=== PATIENT | female | born 1970 | race Caucasian/White ===

== ENCOUNTER 2020-05-26 07:44 | Outpatient (CLI) | payer BC, SELFPAY ==
--- NOTE | ~2020-05-26 | MM_ITS ---
EXAMINATION: MM screening katarzyna BI w abril HISTORY: Screening mammogram TECHNIQUE: Craniocaudal and mediolateral oblique 3-D tomosynthesis images were obtained and synthetic 2-D images were generated. CAD analysis was submitted and interpreted. COMPARISON: No prior mammogram is available for comparison at this institution. BREAST PARENCHYMAL COMPOSITION: There are scattered areas of fibroglandular density. FINDINGS: RIGHT BREAST: A mass is present in the far posterior third of the breast which may reflect an intrama mmary lymph node. No suspicious calcification or architectural distortion are identified. LEFT BREAST: There is no evidence of suspicious mass, calcification, or architectural distortion to s uggest malignancy. IMPRESSION: 1. Right breast mass which may represent the patient's baseline however no comparison is currently av ailable. 2. Comparison with prior mammograms is necessary. BI-RADS Category 0: Incomplete: Needs comparison with prior mammograms. Reviewed, dictated and finalized at location A. NG ROOM BUSSER IMPRESSION: 1. Right breast mass which may represent the patient's baseline however no comp arison is currently available. 2. Comparison with prior mammograms is necessary. BI-RADS Category 0: Incomplete: Needs comparison with prior mammograms.
== END 2020-05-26 07:45 | disposition home or self-care (01) ==
LOC: CHSIMG 07:47
PROVIDERS: PCP Internal Medicine; Visit Provider Internal Medicine
DX: Z12.31 Encounter for screening mammogram for malignant neoplasm of breast (principal)
CPT/HCPCS: 77063; 77067

== ENCOUNTER 2020-05-30 09:27 | Outpatient (CLI) | payer BC, SELFPAY ==
--- NOTE | ~2020-05-30 | MMUS_ITS ---
EXAMINATION: MM diagnostic katarzyna RT w abril, US breast RT limited HISTORY: Follow-up right breast mass TECHNIQUE: Additional 3-D tomosynthesis images of the right breast were performed and synthetic 2-D i mages were generated. CAD analysis was submitted and interpreted. High resolution Limited right breas t ultrasound was performed. COMPARISON: 05/26/2020 BREAST PARENCHYMAL COMPOSITION: Breast composed of scattered areas of fibroglandular density. FINDINGS: MAMMOGRAPHIC FINDINGS: There is a 12 mm mass in the lower outer quadrant of the right breast. There are no suspicious calcif ications or architectural distortion. ULTRASOUND: Limited right breast ultrasound: At 9:00, 9 cm from the nipple there is 1.1 cm intramammary lymph nod e corresponding to the mass identified by mammography. No suspicious masses to suggest malignancy. IMPRESSION: 1. No evidence for malignancy in the right breast. Benign intramammary lymph node. 2. Routine yearly screening mammogram and regular clinical breast examination are recommended. BI-RADS Category 2: Benign finding(s). Reviewed, dictated and finalized at location A. EL SPRAYER IMPRESSION: 1. No evidence for malignancy in the right breast. Benign intramammary lymph no de. 2. Routine yearly screening mammogram and regular clinical breast examination a re recommended. BI-RADS Category 2: Benign finding(s).
== END 2020-05-30 09:28 | disposition home or self-care (01) ==
PROVIDERS: PCP Nurse Practitioner Family; Visit Provider Nurse Practitioner Family
DX: R92.8 Other abnormal and inconclusive findings on diagnostic imaging of breast (principal)
CPT/HCPCS: 76642; 77061; 77065; G0279

== ENCOUNTER 2021-04-17 10:59 | Outpatient (CLI) | payer BC, SELFPAY ==
[2021-04-17 12:09] LABS: Influenza A QL RT-PCR Positive (Negative); Influenza B QL RT-PCR Negative (Negative); SARS-CoV-2 RNA PCR Negative (Negative)
== END 2021-04-17 11:00 | disposition home or self-care (01) ==
LOC: CHSLAB 11:00
PROVIDERS: PCP Internal Medicine; Visit Provider Internal Medicine
DX: R50.9 Fever, unspecified (principal); R05.9 Cough, unspecified; Z20.822 Contact with and (suspected) exposure to COVID-19
CPT/HCPCS: 87502; C9803; U0003; U0005

== ENCOUNTER 2021-06-12 11:16 | Outpatient (CLI) | payer OTHER, SELFPAY ==
[2021-06-12 12:22] LABS: SARS-CoV-2 Ag Positive (Negative)
== END 2021-06-12 11:17 | disposition home or self-care (01) ==
LOC: CHSLAB 11:23
PROVIDERS: PCP Internal Medicine; Visit Provider Internal Medicine
DX: U07.1 COVID-19 (principal); J06.9 Acute upper respiratory infection, unspecified
CPT/HCPCS: 87426; C9803

== ENCOUNTER → 2021-11-20 16:27 | Outpatient (CLI) | payer OTHER, SELFPAY ==
--- NOTE | ~2021-11-20 | MR_ITS ---
EXAMINATION: MR knee RT wo con DATE: 11/20/2021 17:08 INDICATION: Right knee pain. TECHNIQUE: Magnetic resonance imaging (MRI) of the knee was performed without intravenous contrast. S equences included axial PD-weighted FS FSE, coronal PD-weighted FSE and PD-weighted FS FSE, sagittal PD-weighted FSE, and sagittal T2-weighted FS FSE. COMPARISON: None. FINDINGS: Medial compartment: Apical and oblique undersurface tears of the posterior horn and body, medial meniscus. Diffuse severe thinning of cartilage. Medial meniscal extrusion. Moderate osteophytosis. Lateral compartment: Intact meniscus. Moderate diffuse thinning of cartilage. Mild osteophytosis. Patellofemoral compartment: Moderate medial facet cartilage thickening, with full-thickness fissuring. Moderate osteophytosis. Re tinacula intact. Ligaments and tendons: ACL, PCL, LCL, and MCL are intact. Flexor and extensor tendons are intact. Fluid: Minimal volume joint fluid is present. Osseous/other: Severe subchondral sclerosis and subchondral cyst formation with mild marrow edema in the medial aspe ct of the medial plateau. Old subchondral fracture of the medial cortex. Distal femoral enchondroma. IMPRESSION: 1. Complex tear of the posterior horn and body, medial meniscus. 2. Tricompartmental osteophytic changes, severe in the medial compartment. 3. No ligamentous or tendon disruption. Reviewed, dictated and finalized at location K.
== END ==
PROVIDERS: PCP Internal Medicine; Visit Provider Nurse Practitioner Family
DX: S83.231A Complex tear of medial meniscus, current injury, right knee, initial encounter (principal); X58.XXXA Exposure to other specified factors, initial encounter
CPT/HCPCS: 73721

== ENCOUNTER 2022-11-23 07:22 | Outpatient (CLI) | payer OTHER, SELFPAY ==
[2022-11-23 07:35] LABS: Basophils Percent Auto 1.3 % (0.0-1.0); Eosinophils Percent Auto 2.6 % (1.0-6.0); Immature Granulocyte Absolute 0.01 K/mm3 (0.00-0.00); Immature Granulocyte Percent A 0.1 % (0.0-0.0); Lymphocytes Absolute Auto 2.36 K/mm3 (1.10-4.50); Lymphocytes Percent Auto 31.2 % (18.0-42.0); Mean Corpuscular HGB Conc 33.3 g/dL (32.0-36.0); Mean Corpuscular Hemoglobin 29.5 pg (27.0-31.0); Mean Corpuscular Volume 88.4 fL (78.0-102.0); Mean Platelet Volume 9.5 fl (9.2-11.8); Monocytes Absolute Auto 0.63 K/mm3 (0.10-0.90); Monocytes Percent Auto 8.3 % (2.0-11.0); Neutrophils Absolute Auto 4.3 K/mm3 (1.7-7.2); Neutrophils Percent Auto 56.5 % (50.0-70.0); Platelet Count Result 266 K/mm3 (150-420); Red Blood Count 4.75 M/mm3 (4.20-5.40); Red Cell Distribution Width 13.9 % (11.6-14.4); White Blood Count 7.6 K/mm3 (4.8-10.8)
[2022-11-23 07:36] LABS: Appearance Urine Clear (Clear); Bilirubin Urine Negative (Negative); Blood Urine Negative (Negative); Color Urine Light Yellow (Yellow); Glucose Urine UA Negative (Negative); Ketones Urine Negative (Negative); Leukocyte Esterase Ur Negative (Negative); Nitrate Urine Negative (Negative); Protein Urine Negative (Negative); Urobilinogen Urine 0.2 mg/dL (0.2-1.0)
[2022-11-23 07:37] LABS: Add Urine Microscopic? NO
[2022-11-23 08:25] LABS: Alanine Aminotransferase 22 U/L (14-59); Albumin Level 3.8 g/dL (3.4-5.0); Alkaline Phosphatase 66 U/L (46-116); Anion Gap 9 mmol/L (8-16); Aspartate Amino Transferase 12 U/L (15-37); Bilirubin,Total 0.4 mg/dL (0.00-1.00); Blood Urea Nitrogen 13 mg/dL (7-18); Calcium 9.2 mg/dL (8.5-10.1); Carbon Dioxide 27 mmol/L (21-32); Chloride 106 mmol/L (98-108); Cholesterol 228 mg/dL (0-200); Estimated Glomerular Filt Rate > 60; Glucose 103 mg/dL (70-99); HDL Direct 53 mg/dL (40-60); LDL Cholesterol Calculated 158 mg/dL (<130); Osmolality Calculated 294 mOsm/kg (285-295); Potassium 4.3 mmol/L (3.5-5.1); Sodium 142 mmol/L (136-145); Thyroid Stimulating Hormone 3.26 uIU/mL (0.36-3.74); Triglycerides 86 mg/dL (0-150)
== END 2022-11-23 07:23 | disposition home or self-care (01) ==
LOC: CHSLAB 07:24
PROVIDERS: PCP Internal Medicine; Visit Provider Internal Medicine
DX: Z00.00 Encounter for general adult medical examination without abnormal findings (principal)
CPT/HCPCS: 36415; 80053; 80061; 81003; 84443; 85025

== ENCOUNTER 2022-11-29 14:18 | Outpatient (CLI) | payer OTHER, SELFPAY ==
--- NOTE | ~2022-11-29 | DEXA_ITS ---
Bone Density Report Name: NATY HORTON Age: 52 Sex: Female Ethnicity: White Date of : 1970 Indication: postmenopausal; screening for osteoporosis; hysterectomy; Referring Provider: Stephen South Study: Bone densitometry was performed. Exam Date: November 29, 2022 Accession number: [id number] Bone Density: Region BMD T-score Z-score Classification AP Spine(L1-L4) 1.109 0.6 1.3 Normal Femoral Neck (Left) 0.719 -1.2 -0.4 Osteopenia Total Hip (Left) 1.020 0.6 1.1 Normal Femoral Neck (Right) 0.703 -1.3 -0.6 Osteopenia Total Hip (Right) 0.950 0.1 0.5 Normal Femoral Neck Mean 0.711 -1.2 -0.5 Osteopenia Total Hip Mean 0.985 0.4 0.8 Normal World Health Organization criteria for BMD impression classify patients as: Normal (T-score at or above -1.0), Osteopenia (T-score between -1.0 and -2.5), or Osteoporosis (T-score at or below -2.5). 10-year Fracture Risk(1): Major Osteoporotic Fracture 3.9% Hip Fracture 0.4% Reported Risk Factors: [place] (), Neck BMD=0.703, BMI=39.0, smoking (1) FRAX(R) Version 3.08. Fracture probability calculated for an untreated patient. Fracture probability may be lower if the patient has received treatment. Clinical Information Provided by Patient: Smokes Has the following medical conditions: Hysterectomy Patient maximum height was 62 Menopause Age: 40 Drinks caffeinated beverages Onset of menses at age 14 Number of children 2 Impression: The patient has low bone mass, based on the Right Femoral Neck T-score. The patient has risk factors, including: smoking. Discussion: BONE DENSITY IS LOW AT ONE OR MORE SKELETAL SITES. This patient's lowest T-score is low at one or more skeletal sites. It meets the World Health Organization's (WHO) criteria for ?low bone mass? (T-score between -1.0 and -2.5). The patient's 10-year risk of fracture as calculated by FRAX is less than the threshold where pharmacological therapy is recommended by the National Osteoporosis Foundation (NOF). However, all treatment decisions require clinical judgment and consideration of individual patient factors, including patient preferences, comorbidities, previous drug use, risk factors not captured in the FRAX model (e.g., frailty, falls, vitamin D deficiency, increased bone turnover, interval significant decline in bone density) and possible under or overestimation of fracture risk by FRAX. The patient should follow a healthful lifestyle (good nutrition with adequate calcium and vitamin D, and appropriate weight-bearing exercise). Follow-Up: Consider repeating this study in 2 to 3 years to reassess this patient's status, or sooner if there is some new clinical indication. Reported by: Dr. Alfredo Graves on 11/29/2022 2:52:00 PM. Reviewed, dictated and finalized at location A.
--- NOTE | ~2022-11-29 | MM_ITS ---
EXAMINATION: MM screening katarzyna BI w abril HISTORY: Screening mammogram TECHNIQUE: Craniocaudal and mediolateral oblique 3-D tomosynthesis images were obtained and synthetic 2-D images were generated. CAD analysis was submitted and interpreted. COMPARISON: 05/30/2020 diagnostic right mammogram and limited right breast ultrasound 05/26/2020 bilateral screening mammogram BREAST PARENCHYMAL COMPOSITION: FINDINGS: Stable approximately 10 mm circumscribed benign appearing lymph node in the posterior mid t o lower outer right breast. There is no evidence of suspicious mass, calcification, or architectural distortion to suggest malignancy in either breast. There has been no suspicious interval change. IMPRESSION: 1. No mammographic evidence of malignancy. 2. Recommend routine screening mammography in one year. BI-RADS Category 2: Benign finding(s). Reviewed, dictated and finalized at location A.
== END 2022-11-29 14:19 | disposition home or self-care (01) ==
LOC: CHSIMG 14:19
PROVIDERS: PCP Internal Medicine; Visit Provider Internal Medicine
DX: Z12.31 Encounter for screening mammogram for malignant neoplasm of breast (principal); Z78.0 Asymptomatic menopausal state
CPT/HCPCS: 77063; 77067; 77080

== ENCOUNTER 2022-12-20 04:10 | Day surgery (SDC) | payer OTHER, SELFPAY ==
[2022-12-16 16:07] VITALS: BMI 39.1
[2022-12-20 11:34] VITALS: BP 138/79; PULSE 81; RESP 18; TEMP 36.3; O2SAT 100; BMI 38.3
[2022-12-20] MEDS: LACTATED RINGERS 1,000 ML 150 ML IV CONT (11:44)
[2022-12-20 12:28] VITALS: BP 102/63; PULSE 79; RESP 24; O2SAT 99
[2022-12-20 12:38] VITALS: BP 114/72; PULSE 68; RESP 18; O2SAT 100
[2022-12-20 12:48] VITALS: BP 132/88; PULSE 60; RESP 18; O2SAT 99
--- NOTE | 2022-12-23 12:55 | PM.HPGS ---
History of Present Illness History of Present Illness Consent: Risks, benefits, and alternatives have been discussed and questions answered. Patient agrees to proceed with procedure. Chief complaint: neoplasm screening Narrative: Nara Zapien is a 52 year old female Presents for screening colonoscopy. Patient's current weight appetite and bowel movements are normal. She she has had no previous exams. Review of Systems Review of Systems: Review of systems noncontributory. [facility] Social History Social History Smoking packs per day: 0.75 Smoking cigarettes per day: 15.0 Years smoked: 30 Smoking pack-years: 22.50 Smoking status: Current every day smoker Tobacco type: cigarettes Alcohol intake: never Substance use: never Substance use type: does not use Living arrangements: with family Spiritual care concerns: No Meds Home Medications and Allergies Home Medications Medication Instructions Recorded Confirmed Type phentermine 15 mg capsule 15 mg PO EVERY OTHER DAY 12/16/22 12/16/22 History topiramate 25 mg tablet 25 mg PO EVERY OTHER DAY 12/16/22 12/16/22 History Allergies Allergy/AdvReac Type Severity Reaction Status Date / Time No Known Allergies Allergy Verified 12/20/22 11:33 Exam Narrative: Physical exam reveals patient vital signs stable. HEENT exam is unremarkable. Patient anicteric. Lungs are clear. Heart without murmur. Abdomen bowel sounds present soft nontender with no organomegaly. Digital rectal exam normal. Assessment and Plan Assessment and plan (1) Encounter for screening colonoscopy: Code(s): Z12.11 - Encounter for screening for malignant neoplasm of colon Status: Acute Assessment and Plan: patient presents for screening colonoscopy on 09/19/2022.
== END 2022-12-20 12:56 | disposition home or self-care (01) ==
PROVIDERS: PCP Internal Medicine; Visit Provider Internal Medicine Gastroenterology
PROC: 0DJD8ZZ Inspection of Lower Intestinal Tract, Via Natural or Artificial Opening Endoscopic (ICD-10-PCS; CPT 45378; principal; 2022-12-20 13:15)
DX: Z12.11 Encounter for screening for malignant neoplasm of colon (principal); K64.8 Other hemorrhoids; F17.210 Nicotine dependence, cigarettes, uncomplicated
CPT/HCPCS: 45378; J2704; J7120

== ENCOUNTER 2023-12-18 13:32 | Outpatient (CLI) | payer OTHER, SELFPAY ==
--- NOTE | ~2023-12-18 | MM_ITS ---
EXAMINATION: MM screening katarzyna BI w abril HISTORY: Screening TECHNIQUE: Craniocaudal and mediolateral oblique 3-D tomosynthesis images were obtained and synthetic 2-D images were generated. CAD analysis was submitted and interpreted. COMPARISON: Comparison to multiple prior studies sequentially, with oldest reviewed study dated 12/2020. BREAST PARENCHYMAL COMPOSITION: Not dense: There are scattered areas of fibroglandular density. FINDINGS: There is no evidence of suspicious mass, calcification, or architectural distortion to sugg est malignancy in either breast. There has been no suspicious interval change. IMPRESSION: 1. No mammographic evidence of malignancy. 2. Recommend routine screening mammography in one year. BI-RADS Category 1: Negative Reviewed, dictated and finalized at location B.
--- NOTE | 2023-12-18 14:55 | ECHO_ITS ---
Patient Info Name: Nara Zapien Age: 53 years : 1970 Gender: Female Ht: 63 in Wt: 225 lbs BSA: 2.18 m2 HR: 60 bpm BP: 128 / 82 mmHg Technical Quality: Fair Exam Date: 12/18/2023 2:06 PM Exam Location: [facility] [place] Patient Status: Outpatient Admit Date: 12/18/2023 Staff Ordering Physician: Stephen South MD Checker Loader: Sid Hernandez RDCS Attending Provider: Stephen South MD Exam Type: CA echo doppler color flow Study Info Indications - cardiac murmur - abnormal ekg Complete two-dimensional, color flow and Doppler transthoracic echocardiogram is performed. Summary 1. Complete two-dimensional, color flow and Doppler transthoracic echocardiogram is performed. 2. Left ventricular chamber dimension is normal. 3. Left ventricular systolic function is normal, estimated at 60-65%. 4. The left ventricular diastolic function is normal. 5. E/e' 8 is minimally elevated. 6. There is mild mitral valve regurgitation. 7. There is trace tricuspid valve regurgitation. 8. No pulmonary hypertension, estimated pulmonary arterial systolic pressure is 29 mmHg. Left Ventricle E/e' 8 is minimally elevated. Left ventricular chamber dimension is normal. Left ventricular systolic function is normal, estimated at 60-65%. The left ventricular diastolic function is normal. Right Ventricle Right ventricular systolic function is normal and with normal TAPSE 2.1 cm. Right ventricular chamber dimension is normal. Left Atria Left atrial chamber dimension is normal. Right Atria Right atrial chamber dimension is normal. Aortic Valve The aortic valve is trileaflet. There is no aortic valve stenosis. There is no aortic valve regurgitation. Pulmonic Valve There is no pulmonic regurgitation. Mitral Valve There is no mitral valve stenosis. There is mild mitral valve regurgitation. Tricuspid Valve There is trace tricuspid valve regurgitation. No pulmonary hypertension, estimated pulmonary arterial systolic pressure is 29 mmHg. Pericardium/Pleural There is no pericardial effusion. Inferior Vena Cava Normal inferior vena cava with >50% collapse upon inspiration consistent with normal right atrial pressure, 5 mmHg. Aorta The aortic root size at the sinus of Valsalva is normal. Left Ventricular Outflow Tract Name Value Normal LVOT 2D LVOT Diameter 2.0 cm LVOT Doppler LVOT Peak Velocity 118 cm/s LVOT Peak Gradient 6 mmHg LVOT Mean Gradient 3 mmHg LVOT VTI 30 cm LVOT VTI/AV VTI Ratio 0.8 LVOT Stroke Volume 97 ml Pulmonic Valve Name Value Normal PV Doppler PV Peak Velocity 71 cm/s PV Peak Gradient 2 mmHg Mitral Valve Name Value Normal
== END 2023-12-18 13:33 | disposition home or self-care (01) ==
LOC: CHSIMG 13:35
PROVIDERS: PCP Internal Medicine; Visit Provider Internal Medicine
DX: R94.31 Abnormal electrocardiogram [ECG] [EKG] (principal); R01.1 Cardiac murmur, unspecified; Z12.31 Encounter for screening mammogram for malignant neoplasm of breast; I34.0 Nonrheumatic mitral (valve) insufficiency
CPT/HCPCS: 77063; 77067; 93306

== ENCOUNTER 2023-12-20 07:15 | Outpatient (CLI) | payer OTHER, SELFPAY ==
[2023-12-20 07:59] LABS: Hematocrit 39.8 % (35.0-49.0); Hemoglobin 13.4 g/dL (12.0-15.0); Mean Corpuscular HGB Conc 33.7 g/dL (32-36); Mean Corpuscular Hemoglobin 29.5 pg (27.0-31.0); Mean Corpuscular Volume 87.5 fL (78.0-102.0); Mean Platelet Volume 9.2 fl (9.2-11.8); Platelet Count Result 253 K/mm3 (150-420); Red Blood Count 4.55 M/mm3 (4.20-5.40); Red Cell Distribution Width 13.5 % (11.6-14.4); White Blood Count 5.8 K/mm3 (4.8-10.8)
[2023-12-20 08:01] LABS: Bilirubin Urine Negative (Negative); Blood Urine Negative (Negative); Color Urine Light Yellow (Yellow); Glucose Urine UA Negative (Negative); Ketones Urine Negative (Negative); Leukocyte Esterase Ur Negative (Negative); Nitrate Urine Negative (Negative); Protein Urine Negative (Negative); Specific Grav Ur 1.015 (1.010-1.020); Urobilinogen Urine 0.2 mg/dL (0.2-1.0)
[2023-12-20 08:06] LABS: Add Urine Microscopic? NO; Appearance Urine Sl Cloudy (Clear)
[2023-12-20 08:34] LABS: Alanine Aminotransferase 26 U/L (14-59); Albumin Level 3.4 g/dL (3.4-5.0); Alkaline Phosphatase 76 U/L (46-116); Anion Gap 6 mmol/L (4-12); Aspartate Amino Transferase 12 U/L (15-37); Bilirubin,Total 0.4 mg/dL (0.00-1.00); Blood Urea Nitrogen 17 mg/dL (7-18); Calcium 8.9 mg/dL (8.5-10.1); Carbon Dioxide 30 mmol/L (21-32); Chloride 104 mmol/L (98-108); Cholesterol 265 mg/dL (0-200); Estimated Glomerular Filt Rate > 60; Glucose 113 mg/dL (70-99); HDL Direct 66 mg/dL (40-60); LDL Cholesterol Calculated 184 mg/dL (<130); Osmolality Calculated 292 mOsm/kg (285-295); Potassium 4.4 mmol/L (3.5-5.1); Sodium 140 mmol/L (136-145); Thyroid Stimulating Hormone 3.38 uIU/mL (0.36-3.74); Total Protein 7.2 g/dL (6.4-8.2); Triglycerides 77 mg/dL (0-150)
== END 2023-12-20 07:16 | disposition home or self-care (01) ==
LOC: CHSLAB 07:17
PROVIDERS: PCP Internal Medicine; Visit Provider Internal Medicine
DX: Z00.00 Encounter for general adult medical examination without abnormal findings (principal); R01.1 Cardiac murmur, unspecified
CPT/HCPCS: 36415; 80053; 80061; 81003; 84443; 85027

== ENCOUNTER 2024-02-09 09:15 | Outpatient (CLI) | payer OTHER, SELFPAY ==
--- NOTE | 2024-02-09 09:26 | EST_ITS ---
Patient Info Name: Nara Zapien Age: 53 years : 1970 Gender: Female Ht: 63 in Wt: 230 lbs BSA: 2.21 m2 HR: 69 bpm BP: 150 / 54 mmHg Heart Rhythm: Sinus Arrhythmia, Sinus Rhythm Technical Quality: Good Exam Date: 02/09/2024 10:38 AM Exam Location: [facility] Patient Status: Outpatient Admit Date: 02/09/2024 Staff Ordering Physician: Paul Veliz DO Attending Provider: Paul Veliz DO Exam Type: CA stress rebecca w NM Study Info A regadenoson stress test was performed. History/Risk Factors Dyslipidemia: Yes Tobacco Use: Former Summary 1. 1. Negative lexiscan stress test for ischemic ST changes by ECG criteria. 2. 2. Baseline hypertension. 3. 3. Nuclear scan to follow and will be reported separately. Please correlate with it. Protocol: LEXISCAN Stress ECG Details Stage: REST Duration (min): 7 min : 17 sec HR (bpm): 68 SBP (mmHg): 150 DBP (mmHg): 54 Stage: REST Duration (min): 21 min : 9 sec HR (bpm): 73 SBP (mmHg): 150 DBP (mmHg): 54 Stage: STAGE 1 Duration (min): 0 min : 21 sec HR (bpm): 72 SBP (mmHg): 150 DBP (mmHg): 54 Stage: RECOVERY Duration (min): 0 min : 38 sec HR (bpm): 92 SBP (mmHg): 150 DBP (mmHg): 54 Stage: RECOVERY Duration (min): 1 min : 38 sec HR (bpm): 110 SBP (mmHg): 150 DBP (mmHg): 54 Stage: RECOVERY Duration (min): 2 min : 38 sec HR (bpm): 106 SBP (mmHg): 156 DBP (mmHg): 78 Stage: RECOVERY Duration (min): 3 min : 38 sec HR (bpm): 94 SBP (mmHg): 156 DBP (mmHg): 78 Stage: RECOVERY Duration (min): 4 min : 38 sec HR (bpm): 93 SBP (mmHg): 151 DBP (mmHg): 74 Stage: RECOVERY Duration (min): 5 min : 38 sec HR (bpm): 91 SBP (mmHg): 153 DBP (mmHg): 80 Stage: RECOVERY Duration (min): 6 min : 38 sec HR (bpm): 91 SBP (mmHg): 153 DBP (mmHg): 80 Stage: RECOVERY Duration (min): 6 min : 46 sec HR (bpm): 87 SBP (mmHg): 152 DBP (mmHg): 76 Rest HR: 73 bpm Peak HR: 112 bpm Rest Sys BP: 150 mmHg Peak Sys BP: 156 mmHg Max Pred HR: 169 bpm % Max Pred HR: 66 % Target HR: 144 bpm Max RPP: 17,472 bpm*mmHg BP Response: Normal blood pressure response Termination Reason: Completed Protocol Cardiac Symptoms: None Total Time: 0 min : 21 sec Rest Buckley BP: 54 mmHg Peak Buckley BP: 78 mmHg Total Dose: 0.4 mg Resting ECG Sinus rhythm with sinus arrhythmia and possible right ventricular conduction delay. Stress ECG No abnormal ST/T wave changes. Arrhythmias No arrhythmias were observed during the examination. Report Signatures
[2024-02-09 09:53] LABS: Alanine Aminotransferase 31 U/L (14-59); Albumin Level 3.6 g/dL (3.4-5.0); Alkaline Phosphatase 81 U/L (46-116); Anion Gap 7 mmol/L (4-12); Aspartate Amino Transferase 16 U/L (15-37); Bilirubin,Total 0.3 mg/dL (0.00-1.00); Blood Urea Nitrogen 12 mg/dL (7-18); Calcium 8.8 mg/dL (8.5-10.1); Carbon Dioxide 30 mmol/L (21-32); Chloride 105 mmol/L (98-108); Cholesterol 229 mg/dL (0-200); Estimated Glomerular Filt Rate > 60; Glucose 108 mg/dL (70-99); HDL Direct 69 mg/dL (40-60); LDL Cholesterol Calculated 146 mg/dL (<130); Osmolality Calculated 294 mOsm/kg (285-295); Potassium 4.4 mmol/L (3.5-5.1); Sodium 142 mmol/L (136-145); Total Protein 6.9 g/dL (6.4-8.2); Triglycerides 72 mg/dL (0-150)
--- NOTE | 2024-02-09 14:01 | WPDCARIOSTRE ---
Nuclear Stress Test INDICATIONS Indications: LANDEROS, preop PROCEDURE Procedure Performed: Myocardial Perf Spect-Multi Procedure: Patient underwent a lexiscan stress test and immediately was injected with 31.4 mCi of cardiolyte. Multiple tomographic images were obtained. These are of good quality. There is evidence of large size, mild lateral perfusion defect, and a moderate size, moderate severity anteroapical perfusion defect with stress imaging. A separate resting images were obtained after patient was injected with 10.3 mCi of cardiolyte. Multiple tomographic images were obtained. These are of good quality. No perfusion defect with rest imaging. CONCLUSION Conclusion: 1. Abnormal myocardial perfusion imaging demonstrating large size lateral wall and moderate size anteroapical wall perfusion defects suggestive of ischemia. 2. Left ventriculogram demonstrates normal measured ejection fraction of 68% with no wall motion abnormalities. 3. TID score 1.26 is abnormal and visually dilates with stress portion suggestive of left main or triple vessel disease.
[2024-02-10 10:40] LABS: Hemoglobin A1C 5.8 % (<5.7)
== END 2024-02-09 09:16 | disposition home or self-care (01) ==
LOC: CHSCARD 09:16
PROVIDERS: PCP Internal Medicine; Visit Provider Internal Medicine Cardiovascular Disease
DX: E78.5 Hyperlipidemia, unspecified (principal); R06.09 Other forms of dyspnea; R94.39 Abnormal result of other cardiovascular function study
CPT/HCPCS: 36415; 78452; 80053; 80061; 83036; 93017; A9502; J2785

== ENCOUNTER 2024-03-13 07:53 | Outpatient (CLI) | payer OTHER, SELFPAY ==
[2024-03-13 08:59] LABS: Alanine Aminotransferase 31 U/L (14-59); Albumin Level 3.3 g/dL (3.4-5.0); Alkaline Phosphatase 74 U/L (46-116); Anion Gap 7 mmol/L (4-12); Aspartate Amino Transferase 16 U/L (15-37); Bilirubin,Total 0.4 mg/dL (0.00-1.00); Blood Urea Nitrogen 16 mg/dL (7-18); Calcium 9.1 mg/dL (8.5-10.1); Carbon Dioxide 29 mmol/L (21-32); Chloride 106 mmol/L (98-108); Cholesterol 194 mg/dL (0-200); Estimated Glomerular Filt Rate > 60; Glucose 114 mg/dL (70-99); HDL Direct 65 mg/dL (40-60); LDL Cholesterol Calculated 108 mg/dL (<130); Osmolality Calculated 296 mOsm/kg (285-295); Potassium 4.5 mmol/L (3.5-5.1); Sodium 142 mmol/L (136-145); Total Protein 6.7 g/dL (6.4-8.2); Triglycerides 103 mg/dL (0-150)
== END 2024-03-13 07:54 | disposition home or self-care (01) ==
LOC: CHSLAB 07:54
PROVIDERS: PCP Internal Medicine; Visit Provider Internal Medicine Cardiovascular Disease
DX: E78.5 Hyperlipidemia, unspecified (principal)
CPT/HCPCS: 36415; 80053; 80061

== ENCOUNTER 2025-03-27 08:21 | Emergency (ER) | payer BC, SELFPAY ==
--- NOTE | ~2025-03-27 | XR_ITS ---
Lumbar spine series Indication: Pain Comparison: None Technique: 3 views lumbar spine Findings: 5 nonrib-bearing lumbar-type vertebral bodies. No acute fracture. No listhesis. No pars defect. Vertebral bodies normal height. Disc spaces maintained. Mild degenerative changes. SI joints congruent. Sacrum intact. IMPRESSION: 1. No acute findings. Reviewed, dictated and finalized at location R. UNT COLLECTOR IMPRESSION: 1. No acute findings.
[2025-03-27 08:21] VITALS: BP 156/90; PULSE 86; RESP 20; TEMP 36.7; O2SAT 99
--- NOTE | 2025-03-27 08:22 | ED.BACK ---
HPI - Back Pain/Injury General Chief Complaint: Back Pain/Injury Stated Complaint: hip & leg pain Time Seen by Provider: 03/27/25 08:22 Source: patient Mode of arrival: ambulatory Limitations: no limitations History of Present Illness HPI Narrative: Patient is a 54-year-old female with right lower back pain that radiates down to the calf for the past 2 days and worse this morning. She is having a shooting type pain. No saddle numbness, no urinary changes or bowel movement changes. She has been seeing a chiropractor. No definite injury. MD elicited complaint: back pain Pertinent past history: prior back pain Onset (ago): day(s) (Two) Timing: constant Severity: moderate Pain scale (0-10): 7 Similar Symptoms Previously: Yes Quality: burning, sharp and tingling Location: lumbar spine (On the right) and right lower back Radiation: right upper leg and right leg below the knee Exacerbating factors: movement, walking and lifting Relieving factors: immobilization Context: other (Patient having right lower back and buttocks pain that shoots below the right knee for the past 2 days) Associated symptoms: difficulty walking (Due to pain) Treatments prior to arrival: other (None) Related Data Home Medications ?Medication ?Instructions ?Recorded ?Confirmed ?Last Taken ?Type buspirone 10 mg tablet 10 mg PO BID PRN 01/06/24 02/12/24 Unknown History glucosamine HCl 750 mg tablet 750 mg PO BID 01/06/24 02/12/24 Unknown History Allergies Allergy/AdvReac Type Severity Reaction Status Date / Time No Known Allergies Allergy Verified 03/27/25 08:23 Review of Systems Review of Systems: All systems reviewed & are unremarkable except as noted in HPI and below Constitutional: Constitutional: Reports no additional constitutional complaints Eyes: Eyes: Reports no additional eye complaints ENT: Reports system reviewed and no additional complaints, except as documented Cardiovascular: Cardiovascular: Reports no additional cardiovascular complaints Respiratory: Respiratory: Reports no additional respiratory complaints Gastrointestinal: Gastrointestinal: Reports no additional gastrointestinal complaints Genitourinary: Genitourinary: Reports no additional female genitourinary complaints Musculoskeletal: Musculoskeletal: Reports no additional musculoskeletal complaints Integumentary/Breasts: Skin/Breast: Reports system reviewed and no additional complaints, except as docu Neurologic: Reports system reviewed and no additional complaints, except as documented Psychiatric: Psychiatric: Reports no additional psychiatric complaints Endocrine: Endocrine: Reports no additional endocrine complaints Hematologic/Lymphatic: Hematologic/Lymphatic: Reports no additional hematologic/lymphatic complaints Allergic/Immunologic: Allergic/Immunologic: Reports no additional allergic/immunologic complaints PMFSH Past Medical History Medical History delivery delivered COVID-19 Surgical menopause Surgical History Surgical History History of hysterectomy Family History Family History Father , Age 66 Metastatic cancer Cholangiocarcinoma Hypertension PERCY (obstructive sleep apnea) Obesity Depression Mother CAD (coronary artery disease) Hx of CABG Hypertension Hyperlipidemia Type 2 diabetes mellitus Sibling No problems noted. Sibling No problems noted. Sibling No problems noted. Grandparent , Age 70 Breast cancer Carcinoma of colon Sudden Grandparent , 40's Type 2 diabetes mellitus Other Melanoma Social History Social History Smoking packs per day: 0.75 Smoking cigarettes per day: 15.0 Years smoked: 30 Smoking pack-years: 22.50 Tobacco type: cigarettes Alcohol intake: never Substance use: never Substance use type: does not use Do You Feel Safe in your Home?: Yes Lack of Transportation: No Lack of Food: Never True Current Housing: I Have Housing Concerned About Future Housing: No Difficulty Paying Gas/Electric Bills: No Difficulty Paying for Meds: No Currently Unemployed: No Difficulty w/ Childcare or Family Care: No Living arrangements: with family Spiritual care concerns: No Exam Const: General: healthy appearing Nutritional Appearance: well nourished Orientation/consciousness: patient oriented x3 Other: Patient appears to be in acute pain from her lower back HENMT: Head: normal to inspection Ears: external ears normal Face/Nose/Sinus: Normal external nose present Eyes: Conjunctivae: conjunctivae normal Pupils: Equal, round and reactive pupils present EOM: EOMs intact bilaterally Neck: Neck: normal visual inspection, no lymphadenopathy and no meningeal signs Chest: Chest palpation & inspection: normal inspection of the chest Resp: Effort & Inspection: normal respiratory effort and not labored Auscultation: clear to auscultation bilaterally and no crackles Cardio: Rate: regular rate Rhythm: regular rhythm Heart sounds: no murmurs GI: Inspection: non-distended GI Palp: Yes Soft to palpation and No Tenderness to palpation present (GI) Auscultation: normal bowel sounds : General: Yes bladder normal to palpation Back/Spine/Pelvis: Back: no CVA tenderness Skin: General skin exam: normal color Rashes: no rashes Wounds: no wounds Neuro: General: patient oriented x3, moves all extremities and no meningeal signs Cranial nerves: Yes Nystagmus not present Speech: normal speech Gait exam (Neuro): gait abnormal (Difficulty walking due to pain) Other: Fast exam negative, NIH is 0, GCS is 15 Extrem: General: normal to inspection, no clubbing, cyanosis or edema and no pedal edema Other: Straight leg test is positive on the right Psych: Mental Status: mental status grossly normal Affect: normal affect Attitude: cooperative Course Vital Signs Vital signs: Vital Signs Temperature 36.7 C 03/27/25 08:21 Pulse Rate 86 03/27/25 08:21 Respiratory Rate 20 03/27/25 08:21 Blood Pressure 156/90 H 03/27/25 08:21 Pulse Oximetry 99 03/27/25 08:21 Oxygen Delivery Room Air 03/27/25 08:21 Temperature 36.7 C 03/27/25 08:21 Pulse Rate 86 03/27/25 08:21 Respiratory Rate 20 03/27/25 08:21 Blood Pressure 156/90 H 03/27/25 08:21 Pulse Oximetry 99 03/27/25 08:21 Oxygen Delivery Room Air 03/27/25 08:21 MDM - Back Pain/Injury MDM Narrative Medical decision making narrative: Patient is a 54-year-old female with right lower back pain that radiates below the knee for the past 2 days. We will do triple therapy to include steroid, pain medicine and muscle relaxer. X-ray. Imaging Data Attestation: I personally reviewed and interpreted this imaging study as follows: Radiologist's impression: Lumbar x-ray was negative for acute process Discharge Plan Discharge Clinical Impression: Sciatica of right side Patient Disposition: Home Condition: Stable Instructions: Sciatica (ED) Patient Language: Kyrgyz Prescriptions: New methylprednisolone [Medrol (Micheal)] 4 mg tablets,dose pack See Rx Instructions .ROUTE .COMPLEX Qty: 21 0RF Rx Instructions: orally per package directions diazepam [Valium] 5 mg tablet 5 mg PO Q8H PRN (Reason: pain) Qty: 20 0RF hydrocodone-acetaminophen 5-325 mg tablet 1 tablet PO Q8H PRN (Reason: pain) Qty: 10 0RF No Action glucosamine HCl 750 mg tablet 750 mg PO BID Rx Instructions: administer with meals buspirone 10 mg tablet 10 mg PO BID PRN atorvastatin 80 mg tablet 80 mg PO DAILY Qty: 90 2RF Follow-up/Referrals: Stephen South MD [Primary Care Provider, Internal Medicine] Stand Alone Forms: Work/School Release IP Time of Disposition: 09:08
[2025-03-27] MEDS: HYDROcodone/acetaminophen (*CRX) 5-325 MG TABLET 1 TAB PO (08:46)
[2025-03-27] MEDS: diazePAM (*CRX) 5 MG TABLET PO (08:46)
[2025-03-27 09:23] VITALS: BP 142/86; PULSE 84; RESP 16; TEMP 36.7; O2SAT 100
== END 2025-03-27 09:23 | disposition home or self-care (01) ==
PROVIDERS: Emergency Provider Emergency Medicine; PCP Internal Medicine
DX: M54.31 Sciatica, right side (principal); F17.210 Nicotine dependence, cigarettes, uncomplicated
CPT/HCPCS: 72100; 96372; 99283; A9270; J2919

== ENCOUNTER 2025-03-31 14:28 | Outpatient (CLI) | payer BC, SELFPAY ==
--- NOTE | ~2025-03-31 | US_ITS ---
EXAMINATION: US venous doppler LE RT DATE: 03/31/2025 14:56 INDICATION: Right lower limb pain TECHNIQUE: Grayscale ultrasound images without and with compression and Doppler ultrasound images of the right lower extremity veins were obtained. COMPARISON: None. FINDINGS: The visualized portions of right common femoral vein, profunda (deep) femoral vein, femoral vein, popliteal vein, peroneal trunk, posterior tibial veins, peroneal veins, gastrocnemius vein and greater saphenous vein outflow are patent. IMPRESSION: 1. No deep venous thrombosis in the right lower limb. Reviewed, dictated and finalized at location A. NING SPECIALIST
== END 2025-03-31 14:29 | disposition home or self-care (01) ==
PROVIDERS: PCP Internal Medicine; Visit Provider Internal Medicine
DX: M79.661 Pain in right lower leg (principal)
CPT/HCPCS: 93971

== ENCOUNTER 2025-04-23 07:12 | Outpatient (CLI) | payer BC, SELFPAY ==
--- NOTE | ~2025-04-23 | MR_ITS ---
EXAMINATION: MR lumbar spine wo con DATE: 04/23/2025 07:52 INDICATION: Low back pain. Right lower extremity radiculopathy. TECHNIQUE: Magnetic resonance imaging (MRI) of the lumbar spine was performed without intravenous contrast. Sequences included sagittal T2-weighted FSE, sagittal T2-weighted FS FSE, sagittal T1-weighted FSE, and axial T2-weighted FSE. COMPARISON: Lumbar spine radiographs 03/27/2025 FINDINGS: There is 3 degrees levocurvature of thoracolumbar spine. Vertebral body heights are normal. There is mildly decreased disc height at L2-L3, L3-L4, and L4-L5. The distal spinal cord signal intensity is normal. The conus medullaris is at L1 and L2. The following disc levels are specifically dis cussed: L1-L2: The disc does not extend beyond the endplate margin. There is mild bilateral facet joint osteoarthritis. There is no neural foraminal stenosis. There is no central canal stenosis. L2-L3: The disc is bulging and has an annular fissure. There is moderate bilateral facet joint osteoarthritis. There is mild bilateral neural foraminal stenosis. There is mild central canal stenosis. L3-L4: The disc is bulging. There is moderate bilateral facet joint osteoarthritis. There is mild bilateral neural foraminal stenosis. There is no central canal stenosis. L4-L5: The disc is bulging with superimposed right subarticular zone extrusion with mass effect on right L5 nerve root in right lateral recess. There is severe bilateral facet joint osteoarthritis. There is mild bilateral neural foraminal stenosis. There is mild central canal stenosis at the midline. There is severe stenosis of right lateral recess. L5-S1: The disc is bulging and has an annular fissure. There is severe bilateral facet joint osteoarthritis. There is mild bilateral neural foraminal stenosis. There is mild central canal stenosis. IMPRESSION: 1. Extrusion at L4-L5 with mass effect on right L5 nerve root. 2. Mild spondylosis at other levels. Reviewed, dictated and finalized at location E. JEWEL PLATE ASSEMBLER
--- OUTSIDE RECORDS SUMMARY | 2025-04-23 07:15 | XMS_ITS | Encounter Summary ---
Author Organization [facility] Address [address] [place] [address] Care Team Providers Care Manager Of Construction Name Role Phone Stephen South MD Primary Care Provider [phone] Reason for Referral * Surgical (Routine) - Closed Specialty Diagnoses / Procedures Referred By Gonzalo kumar Referred To Contact SURGERY Diagnoses X Procedures Case request [facility] PROCED[facility] Shivam's DeformityNick Notified, REPAIR TENDON ACHILLESNick Notified X Les Gomes MD [address] [place] [id number] Phone: tel: fax: Referral ID Status Reason Start Date Expiration Date Visits Re quested Visits Authorized [id number] Closed 01/12/2019 02/13/2020 1 1 Encounter Details Date Type Department Care Team (Late st Contact Info) Description 01/12/2019 Prep for Procedure [facility] [address] [place] [address] Les Gomes MD [address] [place] [address] Social History Tobacco Use Types Packs/Day Years Used Date Smoking Tobacco: Never Assessed Comments Unknown Sex and Gender Information Value Date Recorded Sex Assigned at Female 06/03/2024 7:33 AM JEWELRY DESIGNER Legal Sex Female 10:45 PM JEWELRY DESIGNER Gender Identity Not on file Sexual Orientation Not on file documented as of this encounter Plan of Treatment Scheduled Orders Name Type Priority Associated Diagnoses Order Schedule Case request operating room: [facility] Shivam[facility] DeformityNick Notified, REPAIR TENDON ACHILLESNick Notified Case Request Routine Once for 1 Occurrences starting 01/12/2019 until 01/12/2019 documented as of this encounter Visit Diagnoses Not on filedocumented in this encounter Additional Health Concerns Infection Onset Date Last Indicated Resolved Time COVID-19 Rule Out 12/03/2021 12/03/2021 12/03/2021 7:08 PM CDT documented as of this encounter Care Teams Manager Of Construction Relationship Specialty Start Date End Date Stephen South MD [address] [place] [phone] PCP - General INTERNAL MEDICINE 01/11/19 documented as of this encounter
--- OUTSIDE RECORDS SUMMARY | 2025-04-23 07:15 | XMS_ITS | Encounter Summary ---
Author Organization [facility] Address [address] [place] [address] Care Team Providers Care High School Teacher Name Role Phone Stephen South MD Primary Care Provider [phone] Encounter Details Date Type Department Care Team (Late st Contact Info) Description 09/03/2023 Waygo Message Enc [address] [id number] Lexi Dyson, [facility] [address] [place] [id number] Visit Follow Up Social History Tobacco Use Types Packs/Day Years Used Date Smoking Tobacco: Every Day Cigarettes 0.5 20 Smokeless Tobacco: Never Alcohol Use Standard Drinks/Week Comments No 0 (1 standard drink = 0.6 oz pur e alcohol) AUDIT-C Answer Date Recorded Frequency of Alcohol Consumption Never 01/26/2019 Average Number of Drinks Not on file 019 Frequency of Binge Drinking Not on file 01/17 Comments No Sex and Gender Information Value Date Recorded Sex Assigned at Female 06/03/2024 7:33 AM COOK MORNING Legal Sex Female 10:45 PM COOK MORNING Gender Identity Not on file Sexual Orientation Not on file documented as of this encounter Plan of Treatment Not on file documented as of this encounter Visit Diagnoses Not on filedocumented in this encounter Care Teams High School Teacher Relationship Specialty Start Date End Date Stephen South MD [address] [place] [phone] PCP - General INTERNAL MEDICINE 01/11/19 documented as of this encounter
--- OUTSIDE RECORDS SUMMARY | 2025-04-23 07:15 | XMS_ITS | Encounter Summary ---
Author Organization [facility] Address [address] [place] [address] Care Team Providers Care Occ Ther Name Role Phone Stephen South MD Primary Care Provider [phone] Encounter Details Date Type Department Care Team ([facility] st Contact Info) Description 10/24/2018 Abstract [facility] CONVERSION [address] [place] [address] , Generic Conversion, Social History Tobacco Use Types Packs/Day Years Used Date Smoking Tobacco: Never Assessed Comments Unknown Sex and Gender Information Value Date Recorded Sex Assigned at Female 06/03/2024 7:33 AM SUPERINTENDENT PRESSURE Legal Sex Female 10:45 PM SUPERINTENDENT PRESSURE Gender Identity Not on file Sexual Orientation Not on file documented as of this encounter Plan of Treatment Not on file documented as of this encounter Visit Diagnoses Not on filedocumented in this encounter Additional Health Concerns Infection Onset Date Last Indicated Resolved Time COVID-19 Rule Out 12/03/2021 12/03/2021 12/03/2021 7:08 PM CDT documented as of this encounter Care Teams Occ Ther Relationship Specialty Start Date End Date Stephen South MD [address] [place] [address] PCP - General INTERNAL MEDICINE 01/11/19 documented as of this encounter
--- OUTSIDE RECORDS SUMMARY | 2025-04-23 07:15 | XMS_ITS | Encounter Summary ---
Author Organization [facility] Address [address] [place] [address] Care Team Providers Care Manufacturing Sales Representative Name Role Phone Stephen South MD Primary Care Provider [phone] Encounter Details Date Type Department Care Team (Late st Contact Info) Description 11/27/2021 Attune Message Enc [facility] [place] [address] Les Gomes MD [address] [place] [address] Visit Follow Up Social History Tobacco Use [...] Sex Assigned at Female 06/03/2024 7:33 AM NUCLEAR PHYSICS PROFESSOR Legal Sex Female 10:45 PM NUCLEAR PHYSICS PROFESSOR Gender Identity Not on file Sexual Orientation Not on file COVID-19 Exposure Response Date Recorded In the last 10 days, have yo u been in contact with someone who was confirmed or suspected to have Coronavirus/COVID-19? No / Unsure 11/29/2021 12:00 PM CDT documented as of this encounter Plan of Treatment Not on file documented as of this encounter Visit Diagnoses Not on filedocumented in this encounter Additional Health Concerns Infection Onset Date Last Indicated Resolved Time COVID-19 Rule Out 12/03/2021 12/03/2021 12/03/2021 7:08 PM CDT documented as of this encounter Care Teams Manufacturing Sales Representative Relationship Specialty Start Date End Date Stephen South MD [address] [place] [phone] PCP - General INTERNAL MEDICINE 01/11/19 documented as of this encounter
--- OUTSIDE RECORDS SUMMARY | 2025-04-23 07:15 | XMS_ITS | Clinical Summary ---
Author Organization [facility] [employer] [facility] Address [address] [place] [address] Care Team Providers Care Heritage Consultant Name Role Phone Unavailable Primary Care Provider Unavailabl e Social History Tobacco Use Types Packs/Day Years Used Date Smoking Tobacco: Never Assessed Comments Unknown Sex and Gender Information Value Date Recorded Sex Assigned at Not on file Legal Sex Female 9:45 AM EDT Gender Identity Not on file Sexual Orientation Not on file Plan of Treatment Not on file Medical Devices Not on file
--- OUTSIDE RECORDS SUMMARY | 2025-04-23 07:15 | XMS_ITS | Clinical Summary ---
Author Organization [facility] Address [address] [place] [address] Care Team Providers Care Time Stamp Assembler Name Role Phone Stephen South MD Primary Care Provider Allergies No known active allergies Medications acetaminophen (TYLENOL) 500 MG tablet Take 1 tablet (500 mg total) by mouth every 6 (six) hours as needed for Pain. Active atorvastatin (LIPITOR) 40 MG tablet Take 2 tablets (80 mg total) by mouth daily. 4 Active busPIRone (BUSPAR) 5 MG tablet Take 1 tablet (5 mg total) by mouth. 4 Active aspirin 81 MG chewable tablet Chew 1 tablet (81 mg total) by mouth daily. 30 tablet 4 Active diclofenac EC (VOLTAREN) 75 MG tabletIndications:P rimary osteoarthritis of right knee Take 1 tablet (75 mg total) by mouth 2 (two) times daily. 60 tablet 2 5 Active Active Problems Problem Noted Date Diagnosed Date Tightness of right gastrocnemius muscle 08/27/19 25 Aftercare following right knee joint replacement surgery 04/05/2024 Right knee pain 02/03/2024 Patellofemoral pain syndrome of left knee 2022 Antalgic gait 06/03/2022 Patellofemoral pain syndrome of right knee 12/27 History of total knee arthroplasty, right 2016 Resolved Problems Problem Noted Date Diagnosed Date Resolved Date Sprain of medial collateral ligament of right knee, initial encounter 09/03/2023 12/23/2023 Loose body of right knee 09/03/202310/2023 Pes anserine bursitis 06/03/20222023 Follow-up examination after orthopedic surgery 03/19/2019 08/30/2024 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 [address] [place], [place] Discharge Disposition: Home or Self Care (Routine Discharge) 03/01/2025 Travel from Last 3 Months Family History Medical History Relation Comments Cancer Father Relation Status Comments Father Mother Alive Social History Tobacco Use Types Packs/Day Years Used Date Smoking Tobacco: Former Cigarettes 0.5 20 Smokeless Tobacco: Never Tobacco Cessation:Counseling Given: Not Answered Alcohol Use Standard Drinks/Week Comments No 0 (1 standard drink = 0.6 oz pur e alcohol) AUDIT-C Answer Date Recorded Frequency of Alcohol Consumption Never 01/26/2019 Average Number of Drinks Not on file 019 Frequency of Binge Drinking Not on file 01/17 Comments No Sex and Gender Information Value Date Recorded Sex Assigned at Female 06/03/2024 7:33 AM GUT SORTER Legal Sex Female 10:45 PM GUT SORTER Gender Identity Not on file Sexual Orientation Not on file Last Filed Vital Signs Vital Sign Reading Time Taken Comments Blood Pressure 141/69 03/22/2024 1:30 PM GUT SORTER Pulse 88 03/22/2024 1:30 PM GUT SORTER Temperature 36.1 C (97 F) 03/22/2024 12:59 PM GUT SORTER Respiratory Rate 16 03/22/2024 1:30 PM GUT SORTER Oxygen Saturation 97% 03/22/2024 1:30 PM GUT SORTER Inhaled Oxygen Concentration - - Weight 108.9 kg (240 lb) 08/26/2024 2:44 PM CDT Height 160 cm (5' 3) 08/26/2024 2:44 PM CDT Body Mass Index 42.51 08/26/2024 2:44 PM CDT Plan of Treatment Health Maintenance Due Date Last Done Comments Colorectal Cancer Screening Colonoscopy (10 Years) 1972 Annual Physical 09/26/1975 Hepatitis C 1990 Hepatitis B Vaccines (1 of 3 - 19+ 3-dose series) 09/26/1991 Mammogram Screening 2012 Pneumococcal Vaccine: 50+ Years (1 of 1 - PCV) 2022 Zoster Vaccines (1 of 2) 2022 COVID-19 Vaccine (1 - 2024- season) 2025 Influenza Adult (#1) 2025 04/12/2020, 04/07/2019, 04/15/2018, Additional history exists DTaP, Tdap and Td Vaccines (2 - Td or Tdap) 04/05/2025 04/05/2015 Hepatitis A Vaccines Aged Out No long er eligible based on patient's age to complete this topic Meningococcal B Vaccine Aged Out No l onger eligible based on patient's age to complete this topic Meningococcal Vaccine Aged Out No enriqueta jaxon eligible based on patient's age to complete this topic RSV Immunizations Under 20 Months Aged Out No longer eligible based on patient's age to complete this topic Goals Goal Patient Goal Type Associated Problems Recent Progress Patient-Stated? Author Autogenerat ed Goal Care Plan Autogenerated Problem No Pham Wolf, RN Medical Devices Implanted Type Area Fall Intern Device Identifier Shelf Expiration Date Model / Serial / Lot Cement Bone 07/03 Fast Set Depuy - [id number] Implanted:Qty: 1 on 03/22/2024 by Krish Pickett Jr., DO at [facility] Cement Implant Right: Knee DEPUY [id number] 06/18/2026 [id number] / / [id number] Component Patellar 32mm Persona Vivacit-E All Poly Knee Sterile Latex Free - [id number] Implanted:Qty: 1 on 03/22/2024 by Krish Pickett Jr., DO at [facility] Knee Components Right: Knee [employer] [id number] 10/22/2028 [id number] / / [id number] Screw Guide 25mm 2.5mm Persona Knee Female Hex Sterile - [id number] Implanted:Qty: 1 on 03/22/2024 by Krish Pickett Jr., DO at [facility] Screw Right: Knee [employer] [id number] 06/26/2033 [id number] / / [id number] Kit Arthrex Bioanchor Speedbridge Jumpstart - [id number] Implanted:Qty: 1 on 02/03/2019 by Les Gomes MD at [facility] Right: Heel [employer] 03/18/2019 [id number] / / [id number] Persona The Personalized Knee System 0 Degree Spiked Keel Implanted:Qty: 1 on 03/22/2024 by Krish Pickett Jr. DO at [facility] Right: Knee [employer] [id number] 12/31/2033 [id number] / / [id number] Persona Th Epersonalized Knee System Cruciate Retaining Implanted:Qty: 1 on 03/22/2024 by Krish Pickett Jr. DO at [facility] Right: Knee [employer] [id number] 06/21/2032 [id number] / / [id number] Persona The Personalized Knee System Vivacit-E Highly Crosslinked Polyethylene Implanted:Qty: 1 on 03/22/2024 by Krish Pickett Jr. DO at [facility] Right: Knee [employer] [id number] 06/30/2028 [id number] 10 / / [id number] Persona Revision Hex Headed Screw Implanted:Qty: 1 on 03/22/2024 by Krish Pickett Jr., DO at [facility] Right: Knee [employer] [id number] 12/30/2033 [id number] 48 / / [id number] Explanted Type Area Fall Intern Device Identifier Shelf Expiration Date Model / Serial / Lot Drill Bit Pin Keren Headless Trocar - [id number] Explanted:Qty: 1 on 03/22/2024 by Krish Pickett Jr., DO at [facility] Drill Right: Knee [employer] [id number] 11/10/2033 [id number] / / [id number] Procedures Procedure Name Priority Date/Time Associated Diagnosis Comments XR LUMB SPINE 3V Routine 03/01/2025 4:18 PM CDT Low back pain with right-sided sciatica from Last 3 Months Results * XR LUMB SPINE 3V (03/01/2025 4:18 PM CDT) Anatomical Region Laterality Modality Spine Radiographic Yumiko ging 03/02/2025 8:02 AM CDT Impressions 03/02/2025 8:03 AM CDT IMPRESSION: No acute findings Ordered By: CHARLOTTE HOUSTON Interpreted By: Gonsalo Guerrero MD, 03/02/2025 8:02 AM Narrative 03/02/2025 8:03 AM CDT [address] [place] [address] 3 VIEWS OF THE LUMBAR SPINE Clinical History: Low back pain Comparison: July 04, 2006 3 views of the lumbar spine demonstrate no evidence of fracture. Overall alignment is within normal limits.. The vertebral body heights are symmetric and within normal limits throughout. The intervertebral disc heights demonstrate symmetry with a normal overall appearance. The facets are normally aligned. The spinous processes and transverse processes appear normal. Anterior vertebral body marginal osteophytes are noted at L3 and L4 Procedure Note Gonsalo Guerrero MD - 03/02/[address] [place] [address] 3 VIEWS OF THE LUMBAR SPINE Clinical History: Low back pain Comparison: July 04, 2006 3 views of the lumbar spine demonstrate no evidence of fracture. Overallalignment is within normal limits.. The vertebral body heights aresymmetric and within normal limits throughout. The intervertebral discheights demonstrate symmetry with a normal overall appearance. The facetsare normally aligned. The spinous processes and transverse processesappear normal. Anterior vertebral body marginal osteophytes are noted atL3 and L4 IMPRESSION: No acute findings Ordered By: CHARLOTTE HOUSTON Interpreted By: Gonsalo Guerrero MD, 03/02/2025 8:02 AM Charlotte Houston [facility] IMAG[facility] Final Res ult from Last 3 Months Additional Health Concerns Active Problems Noted Date Diagnosed Date Autogenerated Problem 01/16/2025 Insurance [facility] Care Teams Time Stamp Assembler Relationship Specialty Start Date End Date Stephen South MD [address] [place] [address] PCP - General INTERNAL MEDICINE 01/11/19
== END 2025-04-23 07:13 | disposition home or self-care (01) ==
PROVIDERS: PCP Internal Medicine; Visit Provider Internal Medicine
DX: M54.16 Radiculopathy, lumbar region (principal); M51.26 Other intervertebral disc displacement, lumbar region
CPT/HCPCS: 72148